=== PATIENT | female | born 1965 | race Caucasian/White ===

== ENCOUNTER → 2021-04-06 | Outpatient (CLI) | payer OTHER ==
[2021-04-07 10:15] LABS: RHEUMATOID ARTHRITIS FACTOR 12.5 IU/mL (0.0-13.9)
== END ==
LOC: LAB 12:34
PROVIDERS: Internal Medicine
DX: R53.83 Other fatigue (principal); M25.50 Pain in unspecified joint; R53.1 Weakness; R63.4 Abnormal weight loss; Z79.1 Long term (current) use of non-steroidal anti-inflammatories (NSAID); D89.89 Other specified disorders involving the immune mechanism, not elsewhere classified; R76.8 Other specified abnormal immunological findings in serum; R93.6 Abnormal findings on diagnostic imaging of limbs
CPT/HCPCS: 73130; 73630; 82728; 83520; 85652; 86140; 86200; 86431